=== PATIENT | male | born 1990 ===

== ENCOUNTER 2020-01-27 06:54 | Outpatient (NON) | payer OTHER, SELFPAY ==
[2020-01-28 19:52] LABS: SARS-CoV-2 RNA PCR Negative
== END 2020-01-27 06:55 ==
PROVIDERS: PCP Nurse Practitioner Adult Health; Visit Provider Student in an Organized Health Care Education/Training Program
DX: Z20.828 Contact with and (suspected) exposure to other viral communicable diseases (principal); R05 Cough; R09.81 Nasal congestion
CPT/HCPCS: 87635; C9803; U0003

== ENCOUNTER 2021-06-30 16:42 | Emergency (ER) | payer SELFPAY ==
[2021-06-30 16:51] VITALS: BP 152/71; PULSE 69; RESP 16; TEMP 36.8; O2SAT 100
--- NOTE | 2021-06-30 17:19 | ED.UPPEXIN ---
HPI - Extremity Injury (Upper) General Chief Complaint: Extremity Injury, Upper Stated Complaint: Laceration to Finger Time Seen by Provider: 06/30/21 17:19 Source: patient Mode of arrival: ambulatory Limitations: no limitations History of Present Illness HPI narrative: 31-year-old male presented for complaint of laceration to right pinky finger after injury tonight. He states he slammed the finger in a car door and pulled it out without opening the door. Bleeding not controlled. He states he does not have insurance and declines imaging. Related Data Allergies Allergy/AdvReac Type Severity Reaction Status Date / Time No Known Allergies Allergy Unverified 01/23/18 18:57 Review of Systems Review of Systems: CONSTITUTIONAL: Denies body aches, fever, chills EYES: Denies visual changes ENT: Denies rhinorrhea, congestion CARDIOVASCULAR: Denies chest pain, palpitations, or edema. RESPIRATORY: Denies cough or dyspnea. GASTROINTESTINAL: Denies abdominal pain, nausea, vomiting, or diarrhea. SKIN: Laceration to right pinky finger. MUSCULOSKELETAL: Denies back pain, joint pain, or myalgia. NEUROLOGIC: Denies headache, numbness, tingling, or weakness. PSYCH: Denies depression or anxiety. All systems reviewed & are unremarkable except as noted in HPI and below PMFSH Comments At time of signature, I have reviewed and agree with nursing past medical, surgical, social and family history unless otherwise noted. Please see nursing chart for further information. There is no relevant family history pertinent to the presenting complaint Exam Narrative: GENERAL: Appears in pain, no distress HEAD: Normocephalic, atraumatic. EYES: conjunctivae clear NECK: Supple. CHEST: Speaks in full sentences. No respiratory distress. HEART: Regular rate and rhythm. Normal and equal peripheral pulses. EXTREMITIES: Laceration to right fifth digit across middle of nail plate and nailbed approx 0.5cm, nail is unapproximated, bleeding moderate amount of drainage Has normal strength and sensation. SKIN: Warm, dry, no rash. NEURO: Alert and oriented x3. PSYCH: Normal mood and affect Course Course Emergency Course: Patient is aware of diagnosis, understands treatment plan. Anticipatory guidance given. Patient agrees to follow-up as directed and is aware of reasons to seek care at the emergency department. Portions of this record may have been created with voice recognition software Level of Care: Express Care Visit Vital Signs Vital signs: Vital Signs Temperature 98.3 F 06/30/21 16:51 Pulse Rate 69 06/30/21 16:51 Respiratory Rate 16 06/30/21 16:51 Blood Pressure 152/71 H 06/30/21 16:51 Pulse Oximetry 100 06/30/21 16:51 Temperature 98.3 F 06/30/21 16:51 Pulse Rate 69 06/30/21 16:51 Respiratory Rate 16 06/30/21 16:51 Blood Pressure 152/71 H 06/30/21 16:51 Pulse Oximetry 100 06/30/21 16:51 Reviewed MDM - Extremity Injury (Upper) MDM Narrative Medical decision making narrative: Pt declines imaging due to cost. we discussed at length the risk for osteomyelitis in layman's terms, with the associated risk of complications including . v/u. He is aware no further treatment can be performed without confirmation of fracture. Dressing applied, bleeding controlled. 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 Differential Diagnosis Differential diagnosis: Likely other (fracture of finger, dislocation of finger, laceration of nailbed, nail avulsion) Discharge Plan Discharge Clinical Impression: Nailbed laceration, finger Qualifiers: Encounter type: initial encounter Qualified Code(s): S61.319A - Laceration without foreign body of unspecified finger with damage to nail, initial encounter Patient Disposition: Home, Self-Care Condition: Stable Instructions: Antibiotic Form, Nail Avulsion (ED) Additional Instructions: You are advise
--- NOTE | 2021-06-30 20:03 | PC.NURSE ---
1755 during stay pt informed staff he did not have medical insurance and wanted to limit wound care related to cost. stated did not want an xray here and he would not go to er at this time if needed. provider and rn spoke with pt regarding concern related to open wound/possible fracture. informed of importance of follow-up on friday if refusing care today.
== END 2021-06-30 17:55 | disposition home or self-care (01) ==
PROVIDERS: Emergency Provider Nurse Practitioner Family
DX: S61.316A Laceration without foreign body of right little finger with damage to nail, initial encounter (principal); W23.0XXA Caught, crushed, jammed, or pinched between moving objects, initial encounter
CPT/HCPCS: 99213; G0463